=== PATIENT | male | born 1990 | race Two or more races ===

== ENCOUNTER 2018-03-01 23:04 | Emergency (ER) | payer BC, OTHER ==
[~2018-03-01] VITALS: Ht 167.6 cm; Wt 90.7 kg
[2018-03-01 23:19] VITALS: BP 139/95
[2018-03-01] MEDS ORDERED: LIDOCAINE-MPF 1%, 2ML ONE (23:28)
[2018-03-01] MEDS ORDERED: DIPH,PERTUSS(ACELL),TET VAC/PF 0.5 ML IM-VACC ONE ×2 (23:30→23:32)
[2018-03-01] MEDS ORDERED: LIDOCAINE-MPF 1%, 2ML INFIL ONE (23:30)
== END 2018-03-02 | disposition home or self-care (01) ==
LOC: ED 23:54
DX: S01.511A Laceration without foreign body of lip, initial encounter (principal); Y04.0XXA Assault by unarmed brawl or fight, initial encounter; Y93.89 Activity, other specified; Y99.8 Other external cause status; Y92.009 Unspecified place in unspecified non-institutional (private) residence as the place of occurrence of the external cause
CPT/HCPCS: 12051; 90471; 90715; 99284